=== PATIENT | male | born 1960 | race Caucasian/White ===

== ENCOUNTER 2022-08-18 06:51 | Emergency (ER) | payer SELFPAY ==
[2022-08-18 07:49] LABS: BILIRUBIN,URINE NEGATIVE (NEGATIVE); GLUCOSE, URINE (UA) NEGATIVE (NEGATIVE); KETONES,URINE (UA) NEGATIVE (NEGATIVE); LEUKOCYTE ESTERASE, URINE SMALL (NEGATIVE); NITRITE,URINE NEGATIVE (NEGATIVE); OCCULT BLOOD,URINE LARGE (NEGATIVE); PH,URINE 5.5 PH (5.0-7.5); PROTEIN,URINE TRACE mg/dL (NEGATIVE); UROBILINOGEN,URINE 0.2 (NORMAL) E.U./dL (NORMAL)
[2022-08-18 08:01] LABS: CLARITY,URINE HAZY (CLEAR)
[2022-08-18 08:07] LABS: BASOPHILS # (AUTO) 0.1 10^3/uL (0.0-0.1); BASOPHILS % (AUTO) 0.4 %; EOSINOPHILS % (AUTO) 0.1 %; HCT - HEMATOCRIT 45.4 % (42.0-52.0); HGB - HEMOGLOBIN 14.4 g/dL (14.0-18.0); LYMPHOCYTES # (AUTO) 1.3 10^3/uL (1.5-3.5); LYMPHOCYTES % (AUTO) 7.7 %; MEAN CORPUSCULAR HEMOGLOBIN 27.2 pg (27.0-31.0); MEAN CORPUSCULAR HGB CONC 31.7 g/dL (32.0-36.0); MEAN CORPUSCULAR VOLUME 85.8 fL (80.0-94.0); MEAN PLATELET VOLUME 10.2 fL (7.4-11.4); MONOCYTES # (AUTO) 0.9 10^3/uL (0.0-1.0); MONOCYTES % (AUTO) 5.6 %; NEUTROPHILS # (AUTO) 14.1 10^3/uL (1.5-6.6); NEUTROPHILS % (AUTO) 85.7 %; PLT - PLATELET COUNT 316 10^3/uL (130-450); RED BLOOD COUNT 5.29 10^6/uL (4.70-6.10); RED CELL DISTRIBUTION WIDTH 14.1 % (12.0-15.0); WHITE BLOOD COUNT 16.5 x10^3/uL (4.8-10.8)
[2022-08-18 08:09] LABS: BACTERIA,URINE Moderate /HPF (None Seen); SQUAMOUS EPITHELIAL CELL,UR FEW Squamous (<= Few); WBC,URINE >25 /HPF (0-3)
[2022-08-18] MEDS ORDERED: cefTRIAXone 1 GM in SODIUM CHLORIDE 0.9% MINIBAG 100 ML IV STA (08:17)
[2022-08-18] MEDS ORDERED: SODIUM CHLORIDE 0.9% 1,000 ML IV STA (08:17)
[2022-08-18 08:20] LABS: ALBUMIN 4.2 g/dL (3.2-5.5); ALBUMIN/GLOBULIN RATIO 1.1 (1.0-2.2); CALCIUM 9.4 mg/dL (8.5-10.3); CREATININE 1.5 mg/dL (0.6-1.2); POTASSIUM 3.7 mmol/L (3.5-5.0)
--- NOTE | 2022-08-18 08:21 | ED Physician Documentation ---
PD HPI MALE - Stated complaint Stated Complaint: SIDE PX - Chief complaint Chief Complaint: Abd Pain - History obtained from History obtained from: Patient, Family () - History of Present Illness Timing - onset: Last night Timing - duration: Hours Timing - details: Abrupt onset, Now resolved Associated symptoms: Dysuria, Urinary frequency, Back pain Similar symptoms before: No diagnosis, Other (has had similar back pains on the right consistent with kidney stone has not had evaluation pain has always resolved.) Recently seen: Not recently seen - Additional information Additional information: 62-year-old Melecio Maynard has a cochlear implant in place but otherwise does not take any regular medications and beginning last night he developed some left flank pain associated with some nausea and the pain was severe and nonmodi fiable. He notes that over the past 2 months he has had some burning with urination on and off and no flank pain. At the time of my evaluation the patient indicates that his flank pain has disappeared. He felt this happened relatively rapidly and has no pain now. He has not had a fever he did have some transient nausea that has resolved. He has not been evaluated for his dysuria over the past 2 months. Review of Systems Constitutional: denies: Fever Eyes: denies: Decreased vision, Photophobia Ears: denies: Ear pain Nose: denies: Rhinorrhea / runny nose, Congestion Throat: denies: Sore throat Cardiac: denies: Chest pain / pressure, Palpitations Respiratory: denies: Dyspnea, Cough GI: reports: Abdominal Pain, Nausea. denies: Vomiting, Constipation, Diarrhea : reports: Dysuria, Frequency Skin: denies: Rash Musculoskeletal: reports: Back pain. denies: Neck pain, Extremity pain Neurologic: denies: Generalized weakness, Focal weakness, Numbness PD PAST MEDICAL HISTORY - Present Medications Home Medications: Ambulatory Orders Medication Instructions Recorded Confirmed cephALEXin [Keflex] 500 mg PO Q6H #28 cap 08/18/22 - Allergies Allergies/Adverse Reactions: Allergies Allergy/AdvReac Type Severity Reaction Status Date / Time Penicillins Allergy Rash Verified 08/18/22 07:40 PD ED PE NORMAL - Vitals Vital signs reviewed: Yes (hypertensive mild) - General General: Alert and oriented X 3, No acute distress, Well developed/nourished - HEENT HEENT: Atraumatic, PERRL, EOMI - Neck Neck: Supple, no meningeal sign, No bony TTP - Cardiac Cardiac: RRR, No murmur - Respiratory Respiratory: No respiratory distress, Clear bilaterally - Abdomen Abdomen: Normal bowel sounds, Soft, Non tender, Non distended, No organomegaly - Back Back: No CVA TTP, No spinal TTP - Derm Derm: Normal color, Warm and dry, No rash - Extremities Extremities: No deformity, No edema - Neuro Neuro: Alert and oriented X 3, 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, No motor deficit, No sensory deficit, Normal speech Eye Opening: Spontaneous Motor: Obeys Commands Verbal: Oriented GCS Score: 15 - Psych Psych: Normal mood, Normal affect Results - Vitals Vitals: Vital Signs - 24 hr 08/18/22 07:33 Temperature 36.4 C L Heart Rate 63 Respiratory 18 Rate Blood Pressure 145/79 H O2 Saturation 99 Oxygen O2 Source Room air - Labs Labs: Laboratory Tests 08/18/22 08/18/22 08/18/22 07:42 08:02 08:02 WBC 16.5 H RBC 5.29 Hgb 14.4 Hct 45.4 MCV 85.8 MCH 27.2 MCHC 31.7 L RDW 14.1 Plt Count 316 MPV 10.2 Neut # (Auto) 14.1 H Lymph # (Auto) 1.3 L [place] # (Auto) 0.9 Eos # (Auto) 0.0 Baso # (Auto) 0.1 Absolute Nucleated RBC 0.00 Nucleated RBC % 0.0 Sodium 138 Potassium 3.7 Chloride 100 L Carbon Dioxide 28 Anion Gap 10.0 BUN 26 H Creatinine 1.5 H Estimated GFR (MDRD) 47 L Glucose 189 H Calcium 9.4 Total Bilirubin 1.0 AST 20 ALT 27 Alkaline Phosphatase 41 L Total Protein 8.0 Albumin 4.2 Globulin 3.8 Albumin/Globulin Ratio 1.1 Lipase 94 H Urine Color YELLOW Urine Clarity HAZY Urine pH 5.5 Ur Specific [place] >=1.030 H Urine Protein TRACE Urine Glucose (UA) NEGATIVE Urine Ketones NEGATIVE Urine Occult Blood LARGE H Urine Nitrite NEGATIVE Urine Bilirubin NEGATIVE Urine Urobilinogen 0.2 (NORMAL) Ur Leukocyte Esterase SMALL H Urine RBC 6-10 H Urine WBC >25 H Ur Squamous Epith Cells FEW Squamous Urine Bacteria Moderate H Ur Microscopic Review INDICATED Urine Culture Comments INDICATED Procedures - Bedside sono Bedside sono by EMP: With use of POCUS I was able to image the left kidney there is no obvious hydronephrosis and the kidney is sonographically nontender PD Medical Decision Making - ED course Complexity details: reviewed results, re-evaluated patient, considered differential, d/w patient, d/w family Reviewed Lab Results: We reviewed a complete blood count with an elevated white blood cell count at 16.5 and normal hemoglobin hematocrit and platelets we reviewed chemistries which showed a mildly elevated BUN and creatinine at 26 and 1.5 and we have no comparisons for the patient. Urinalysis was significant for a concentrated urine with large occult blood 6-10 white-red blood cells per high-power field and greater than 25. There was moderate bacteria and the urinalysis made the grade for culture. My interpretation of these tests are it appears there is urinary tract infection. There is also concern for mild renal insufficiency. The patient was dehydrated on evaluation and may have been dehydrated for some period and this may account for it. I did check the patient's bladder with POCUS and found it not to be over full so I do not believe there is any reflux. I did not find evidence of hydronephrosis on POCUS but this was done after the patient had resolution of his pain. The history is most consistent with passing a kidney stone and existence of an infection for a considerable period of time before this event this morning. ED course: The patient is administered a liter of saline and a gram of Rocephin and we will place him on Keflex as an outpatient. I have asked the patient to follow-up as urinary tract infection in male is not common. I felt the patient likely had passed a stone in the emergency department and I discussed imaging with the patient. He indicated he does not have insurance at this point and I felt the CT scan may provide additional information but not entirely necessary at this point I have asked the patient to have follow-up with his primary. Departure - Departure Disposition: 01 Home, Self Care Clinical Impression: Flank pain, acute Urinary tract infection Qualifiers: Urinary tract infection type: acute cystitis Hematuria presence: with hematuria Qualified Code(s): N30.01 - Acute cystitis with hematuria Condition: Stable Instructions: ED UTI Cystitis Male Follow-Up: Logan Carrillo MD [Provider Admit Priv/Credential] - Prescriptions: cephALEXin [Keflex] 500 mg PO Q6H #28 cap Comments: Melecio, today it sounds like you might have passed a stone on the left side. We did however find that there is evidence of urinary tract infection and it appears you have had symptoms for months. We are treating this today we have given you an infusion of Rocephin and I have E scribed some Keflex to the [facility] in [place]. We did not do imaging today and my recommendation is that if this pain recurs we have asked you to return to have imaging done. Usually a kidney stone will cause severe pain without modifying factors and when the pain resolves this usually indicates the stone has passed. Urinary tract infection in a male is unusual and a follow-up is indicated. Follow-up with Dr. Moore in the next 10 days or follow-up with a primary care doctor in [place] when you arrive there.
[2022-08-18 10:17] VITALS: BP 126/81
== END 2022-08-18 10:16 | disposition home or self-care (01) ==
LOC: ED 06:51
DX: N30.01 Acute cystitis with hematuria (principal); R10.9 Unspecified abdominal pain; E86.0 Dehydration
CPT/HCPCS: 36415; 80053; 81001; 81003; 83690; 85025; 87077; 87086; 87181; 96365; 99284